=== PATIENT | male | born 1935 | race Caucasian/White ===

== ENCOUNTER 2018-10-03 10:04 | Emergency (ER) | payer OTHER ==
[~2018-10-03] VITALS: Ht 175.3 cm; Wt 92.5 kg
--- OUTSIDE RECORDS SUMMARY | 2018-10-03 10:07 | XMS REPORT | Clinical Summary ---
Author Author [facility] Address Unknown Phone Unavailable Care Team Providers Care Lathe Winder Name Role Phone Asked, No Pcp PCP Unavailable Allergies Comments Active Allergy Reactions Severity Noted Date Codeine 03/24/2018 Medications End Date Status Medication Sig Dispensed Refills Start Date Active lisinopril Take 40 mg by 0 (PRINIVIL,ZESTRIL) 40 mg mouth daily. tablet Active hydroCHLOROthiazide Take 12.5 mg 0 (HYDRODIURIL) 12.5 MG by mouth tablet daily. Active metoprolol succinate XL Take 75 mg by 0 (TOPROL-XL) 25 mg 24 hr mouth daily. tablet Active aspirin (ECOTRIN) 81 MG Take 81 mg by 0 enteric coated tablet mouth daily. Active omega 9-nze-dlo-fish oil Take 1 0 (FISH OIL) 1,000 mg (120 capsule by mg-180 mg) capsule mouth daily. Active amLODIPine (NORVASC) 10 Take 10 mg by 0 mg tablet mouth daily. Active levothyroxine (SYNTHROID, Take 50 mcg 0 LEVOXYL) 50 mcg tablet by mouth every morning. Active omeprazole (PriLOSEC) 20 Take 20 mg by 0 MG capsule mouth daily. 03/29/2018 Discontinued ibuprofen (ADVIL,MOTRIN) Take 200 mg 0 200 MG tablet by mouth every 6 (six) hours as needed for mild pain. 04/28/2018 amIODarone (PACERONE) 200 Take 1 tablet 60 tablet 0 03/29/201 MG tablet (200 mg 8 total) by mouth every 12 (twelve) hours for 30 days. 04/28/2018 apixaban (ELIQUIS) 5 mg Take 1 tablet 60 tablet 0 201 tablet (5 mg total) 8 by mouth 2 (two) times a day for 30 days. Active Problems Problem Noted Date Atrial fibrillation 03/26/2018 Disease of thyroid gland 03/26/2018 Hypertension 03/26/2018 HECTOR (acute kidney injury) 03/26/2018 Pneumonia 03/26/2018 Dehydration 03/24/2018 Encounters Care Team Description Date Type Specialty Emeka Mckenna DO Al-Lahiq, Maha, MD Teqwimuah, Remy, DO Dehydration (Primary Dx); Heat exhaustion due to water depletion, initial encounter; Paroxysmal atrial fibrillation; HECTOR (acute kidney injury) 03/24/2018 Hospital General Internal Medicine - Encounter 03/29/2018 after 10/02/2017 Social History Date Tobacco Use Types Packs/Day Years Used Former Smoker Smokeless Tobacco: Never Used Alcohol Use Drinks/Week oz/Week Comments No Sex Assigned at Date Recorded Not on file Industry Job Start Date Occupation Not on file Not on file Not on file Travel End Travel History Travel Start No recent travel history available. Last Filed Vital Signs Time Taken Vital Sign Reading 03/29/2018 11:22 AM CDT Blood Pressure 135/79 03/29/2018 11:22 AM CDT Pulse 71 03/29/2018 11:22 AM CDT Temperature 37 C (98.6 F) 03/29/2018 11:22 AM CDT Respiratory Rate 16 03/29/2018 11:22 AM CDT Oxygen Saturation 96% - Inhaled Oxygen - Concentration 03/27/2018 4:00 AM CDT Weight 125 kg (275 lb 5.7 oz) 03/24/2018 9:00 PM CDT Height 175.3 cm (5' 9") 03/27/2018 4:00 AM CDT Body Mass Index 40.66 Plan of Treatment Health Maintenance Due Date Last Done Comments SHINGLES VACCINES (1 of 1986 2) PNEUMOCOCCAL 2001 POLYSACCHARIDE VACCINE AGE 65 AND OVER PNEUMOCOCCAL-13 2001 INFLUENZA VACCINE 04/24/2018 Procedures Comments Procedure Name Priority Date/Time Associated Diagnosis ZZESTIMATED GFR Routine 03/29/2018 4:43 AM CDT BASIC METABOLIC PANEL Routine 03/29/2018 4:43 AM CDT CREATINE KINASE, TOTAL Routine 03/29/2018 (CPK) 4:43 AM CDT US RENAL Routine 03/28/2018 8:22 AM CDT ZZESTIMATED GFR Routine 03/28/2018 5:00 AM CDT BASIC METABOLIC PANEL Routine 03/28/2018 5:00 AM CDT HC COMPLETE BLD COUNT Routine 03/28/2018 W/AUTO DIFF 5:00 AM CDT MAGNESIUM LEVEL Routine 03/28/2018 5:00 AM CDT CREATINE KINASE, TOTAL Routine 03/28/2018 (CPK) 5:00 AM CDT ZZESTIMATED GFR Routine 03/27/2018 5:00 AM CDT IONIZED CALCIUM Routine 03/27/2018 5:00 AM CDT BASIC METABOLIC PANEL Routine 03/27/2018 5:00 AM CDT HC COMPLETE BLD COUNT Routine 03/27/2018 W/AUTO DIFF 5:00 AM CDT CREATINE KINASE, TOTAL Routine 03/27/2018 (CPK) 5:00 AM CDT MAGNESIUM LEVEL Routine 03/27/2018 5:00 AM CDT MAGNESIUM LEVEL Routine 03/26/2018 7:44 PM CDT POTASSIUM LEVEL Routine 03/26/2018 7:44 PM CDT HEPATIC FUNCTION PANEL Routine 03/26/2018 7:44 PM CDT IONIZED CALCIUM Routine 03/26/2018 7:44 PM CDT ECG 12-LEAD STAT 03/26/2018 2:[address] CHEST WO CONTRAST Routine 03/26/2018 2:35 PM CDT XR CHEST 1 VW PORTABLE Routine 03/26/2018 6:16 AM CDT CREATINE KINASE, TOTAL Routine 03/26/2018 (CPK) 5:00 AM CDT ZZESTIMATED GFR Routine 03/26/2018 5:00 AM CDT IONIZED CALCIUM Routine 03/26/2018 5:00 AM CDT PHOSPHORUS LEVEL Routine 03/26/2018 5:00 AM CDT LACTIC ACID LEVEL Routine 03/26/2018 5:00 AM CDT MAGNESIUM LEVEL Routine 03/26/2018 5:00 AM CDT COMPREHENSIVE METABOLIC Routine 03/26/2018 PANEL 5:00 AM CDT HC COMPLETE BLD COUNT Routine 03/26/2018 W/AUTO DIFF 5:00 AM CDT URINALYSIS SCREEN AND Routine 03/25/2018 MICROSCOPY, WITH REFLEX 7:45 PM CDT TO CULTURE GRAM STAIN Routine 03/25/2018 7:45 PM CDT URINE CULTURE Routine 03/25/2018 7:45 PM CDT ECG 12-LEAD Routine 03/25/2018 7:15 PM CDT LACTIC ACID LEVEL Routine 03/25/2018 6:45 PM CDT TROPONIN Routine 03/25/2018 6:45 PM CDT ECHOCARDIOGRAM 2D Routine 03/25/2018 COMPLETE W MMODE SPECTRAL 3:00 PM CDT COLOR DOPPLER ([id number]) ECG 12-LEAD STAT 03/25/2018 1:32 PM CDT XR CHEST 1 VW PORTABLE STAT 03/25/2018 1:25 PM CDT BLOOD CULTURE, AEROBIC & Routine 03/25/2018 ANAEROBIC 1:20 PM CDT BLOOD CULTURE, AEROBIC & Routine 03/25/2018 ANAEROBIC 1:10 PM CDT TROPONIN Routine 03/25/2018 1:00 PM CDT B NATRIURETIC PEPTIDE STAT 03/25/2018 1:00 PM CDT LACTIC ACID LEVEL STAT 03/25/2018 1:00 PM CDT ZZESTIMATED GFR Routine 03/25/2018 7:14 AM CDT HC COMPLETE BLD COUNT STAT 03/25/2018 W/AUTO DIFF 7:14 AM CDT BASIC METABOLIC PANEL Routine 03/25/2018 7:14 AM CDT LACTIC ACID LEVEL, SEPSIS Timed 03/24/2018 - NOW AND REPEAT 2X EVERY 10:15 PM CDT 3 HOURS NM LUNG VENTILATION STAT 03/24/2018 PERFUSION 7:34 PM CDT TROPONIN Timed 03/24/2018 6:34 PM CDT LACTIC ACID LEVEL, SEPSIS Timed 03/24/2018 - NOW AND REPEAT 2X EVERY 6:34 PM CDT 3 HOURS XR CHEST 1 VW PORTABLE STAT 03/24/2018 5:10 PM CDT ZZESTIMATED GFR STAT 03/24/2018 3:44 PM CDT TROPONIN STAT 03/24/2018 3:44 PM CDT CREATINE KINASE, TOTAL STAT 03/24/2018 (CPK) 3:44 PM CDT LACTIC ACID LEVEL, SEPSIS STAT 03/24/2018 - NOW AND REPEAT 2X EVERY 3:44 PM CDT 3 HOURS BASIC METABOLIC PANEL STAT 03/24/2018 3:44 PM CDT HC COMPLETE BLD COUNT STAT 03/24/2018 W/AUTO DIFF 3:44 PM CDT ECG ED PRELIMINARY Routine 03/24/2018 INTERPRETATION 3:37 PM CDT ECG 12-LEAD STAT 03/24/2018 3:31 PM CDT after 10/02/2017 Results * Estimated GFR (03/29/2018 4:43 AM CDT) Only the most recent of 6 results within the time period is included. GFR Non Af Amer 45 (A) mL/min/1.73 m2 [facility] DEPARTMENT OF PATHOLOGY AND GENOMIC MEDICINE GFR Af Amer 54 (A) mL/min/1.73 m2 [facility] DEPARTMENT OF Comment: PATHOLOGY AND Chronic kidney disease: <60 GENOMIC MEDICINE mL/min/1.73m2 Kidney failure: <15 mL/min/1.73m2 The estimated GFR is calculated from the IDMS-traceable Modification of Diet in Renal Disease Equation. The accuracy of the calculation is poor when the creatinine is normal. Calculated values >90 mL/min/1.73m2 are not reported. This equation has not been validated in children (<18 years), women, the elderly (>70 years), or ethnic groups other than Caucasians and Americans. Specimen Plasma specimen Performing Organization Address [facility] Phone Number [address] [place] [address] PATHOLOGY [facility] * Creatine kinase, total (CPK) (03/29/2018 4:43 AM CDT) Only the most recent of 5 results within the time period is included. Creatine kinase 33 (L) 39 - 308 U/L [facility] PATHOLOGY [facility] cFares [facility] Specimen Plasma specimen Performing Organization Address City/[facility] Phone Number [address] [place] [address] PATHOLOGY [facility] * Basic metabolic panel (03/29/2018 4:43 AM CDT) Only the most recent of 5 results within the time period is included. Sodium 141 135 - 148 mEq/L [facility] DEPARTMENT OF PATHOLOGY AND GENOMIC MEDICINE Potassium 3.9 3.5 - 5.0 mEq/L [facility] DEPARTMENT OF PATHOLOGY AND GENOMIC MEDICINE Chloride 100 98 - 112 mEq/L [facility] DEPARTMENT OF PATHOLOGY AND GENOMIC MEDICINE CO2 27 24 - 31 mEq/L [facility] DEPARTMENT OF PATHOLOGY AND GENOMIC MEDICINE Anion gap 14@ANIO 7 - 15 mEq/L [facility] DEPARTMENT OF PATHOLOGY AND GENOMIC MEDICINE BUN 23 8 - 23 mg/dL [facility] DEPARTMENT OF PATHOLOGY AND GENOMIC MEDICINE Creatinine 1.5 (H) 0.7 - 1.2 mg/dL [facility] DEPARTMENT OF PATHOLOGY AND GENOMIC MEDICINE Glucose 111 (H) 65 - 99 mg/dL [facility] DEPARTMENT OF PATHOLOGY AND GENOMIC MEDICINE Calcium 8.8 8.8 - 10.2 mg/dL [facility] DEPARTMENT OF PATHOLOGY AND GENOMIC MEDICINE Specimen Plasma specimen Performing Organization Address [facility]/Zipcode Phone Number [facility] [address] [place] [address] PATHOLOGY AND GENOMIC MEDICINE * US Renal (03/28/2018 8:22 AM CDT) Narrative Performed At EXAMINATION:US RENAL [facility] CLINICAL HISTORY:HECTOR COMPARISON:None. IMPRESSION: 1.There is no hydronephrosis. 2.Renal cortical echogenicity is within normal limits. 3.Right kidney measures 10.6 x 5.9 x 5.9 cm. 4.Left kidney measures 10.7 x 6.9 x 8 cm with couple of cysts measuring 6.4 x 3.2 x 4.7 cm in the inferior pole and 3.1 cm in the mid/superior pole. 5.Bladder is unremarkable. [facility]-[id number] Procedure Note Interface, Radiology Results Incoming - 03/28/2018 8:30 AM CDT EXAMINATION: US RENAL CLINICAL HISTORY: HECTOR COMPARISON: None. IMPRESSION: 1. There is no hydronephrosis. 2. Renal cortical echogenicity is within normal limits. 3. Right kidney measures 10.6 x 5.9 x 5.9 cm. 4. Left kidney measures 10.7 x 6.9 x 8 cm with couple of cysts measuring 6.4 x 3.2 x 4.7 cm in the inferior pole and 3.1 cm in the mid/superior pole. 5. Bladder is unremarkable. [facility]-[id number] Performing Organization Address City/[facility]/Zipcode Phone Number [facility] [address] [place] [address] * CBC with platelet and differential (03/28/2018 5:00 AM CDT) Only the most recent of 5 results within the time period is included. WBC 5.93 4.50 - 11.00 k/uL [facility] DEPARTMENT OF PATHOLOGY AND GENOMIC MEDICINE RBC 4.30 (L) 4.40 - 6.00 m/uL [facility] DEPARTMENT OF PATHOLOGY AND GENOMIC MEDICINE HGB 13.3 (L) 14.0 - 18.0 g/dL [facility] DEPARTMENT OF PATHOLOGY AND GENOMIC MEDICINE HCT 39.2 (L) 41.0 - 51.0 % [facility] DEPARTMENT OF PATHOLOGY AND GENOMIC MEDICINE MCV 91.2 82.0 - 100.0 fL [facility] DEPARTMENT OF PATHOLOGY AND GENOMIC MEDICINE MCH 30.9 27.0 - 34.0 pg [facility] DEPARTMENT OF PATHOLOGY AND GENOMIC MEDICINE MCHC 33.9 31.0 - 37.0 g/dL [facility] DEPARTMENT OF PATHOLOGY AND GENOMIC MEDICINE RDW - SD 44.9 37.0 - 55.0 fL [facility] DEPARTMENT OF PATHOLOGY AND GENOMIC MEDICINE MPV 11.1 8.8 - 13.2 fL [facility] DEPARTMENT OF PATHOLOGY AND GENOMIC MEDICINE Platelet count 168 150 - 400 k/uL [facility] DEPARTMENT OF PATHOLOGY AND GENOMIC MEDICINE Nucleated RBC 0.00 /100 WBC [facility] DEPARTMENT OF PATHOLOGY AND GENOMIC MEDICINE Neutrophils 68.7 39.0 - 69.0 % [facility] DEPARTMENT OF PATHOLOGY AND GENOMIC MEDICINE Lymphocytes 19.7 (L) 25.0 - 45.0 % [facility] DEPARTMENT OF PATHOLOGY AND GENOMIC MEDICINE Monocytes 7.9 0.0 - 10.0 % [facility] DEPARTMENT OF PATHOLOGY AND GENOMIC MEDICINE Eosinophils 1.7 0.0 - 5.0 % [facility] DEPARTMENT PATHOLOGY AND GENOMIC MEDICINE Basophils 0.5 0.0 - 1.0 % [facility] OF PATHOLOGY AND GENOMIC MEDICINE Specimen Blood Performing Organization Address City[facility] Phone Number [address] [place] [address] PATHOLOGY [facility] * Magnesium level (03/28/2018 5:00 AM CDT) Only the most recent of 4 results within the time period is included. Magnesium 2.0 1.6 - 2.4 mg/dL [facility] OF PATHOLOGY AND GENOMIC MEDICINE Specimen Plasma specimen Performing Organization Address City[facility] Phone Number [address] [place] [address] PATHOLOGY [facility] GENOMIC MEDICINE * Ionized calcium (03/27/2018 5:00 AM CDT) Only the most recent of 3 results within the time period is included. pH 7.47 [facility] DEPARTMENT OF PATHOLOGY AND GENOMIC MEDICINE Ionized calcium 1.12 1.11 - 1.32 mmol/L [facility] DEPARTMENT OF PATHOLOGY AND GENOMIC MEDICINE Specimen Plasma specimen Performing Organization Address [facility] Phone Number [place] [address] [place] [phone] PATHOLOGY AND GENOMIC MEDICINE * Potassium level (03/26/2018 7:44 PM CDT) Potassium 3.3 (L) 3.5 - 5.0 mEq/L [facility] DEPARTMENT OF PATHOLOGY AND GENOMIC MEDICINE Specimen Plasma specimen Performing Organization Address City/[facility] Phone Number [place] [address] [place] [phone] PATHOLOGY AND GENOMIC MEDICINE * Hepatic function panel (03/26/2018 7:44 PM CDT) Albumin 2.5 (L) 3.5 - 5.0 g/dL [facility] DEPARTMENT OF PATHOLOGY AND GENOMIC MEDICINE Total bilirubin 0.4 0.0 - 1.2 mg/dL [facility] DEPARTMENT OF PATHOLOGY AND GENOMIC MEDICINE Bilirubin direct 0.1 0.0 - 0.3 mg/dL [facility] DEPARTMENT OF PATHOLOGY AND GENOMIC MEDICINE Alkaline phosphatase 49 40 - 129 U/L [facility] DEPARTMENT OF PATHOLOGY AND GENOMIC MEDICINE Protein 4.9 (L) 6.3 - 8.3 g/dL [facility] DEPARTMENT OF Comment: PATHOLOGY AND GENOMIC MEDICINE 4.6-7.0 g/dL 1 week 4.4-7.6 g/dL 7 months-1year 5.1-7.3 g/dL 1-2 years5.6-7 .5 g/dL >3 years6.0-8 .0 g/dL 18-150 6.3-8.3 g/dL ALT 34 5 - 50 U/L [facility] DEPARTMENT OF PATHOLOGY AND GENOMIC MEDICINE AST 34 10 - 50 U/L [facility] DEPARTMENT OF PATHOLOGY AND GENOMIC MEDICINE Specimen Plasma specimen Performing Organization Address [facility] Phone Number [place] [address] [place] [phone] PATHOLOGY AND GENOMIC MEDICINE * ECG 12 lead (03/26/2018 2:58 PM CDT) Only the most recent of 4 results within the time period is included. Ventricular rate 102 [facility] Atrial rate 326 [facility] QRSD interval 96 [facility] QT interval 346 [facility] QTC interval 450 [facility] QRS axis 1 -62 [facility] T wave axis 69 [facility] M[facility] EKG impression Atrial fibrillation with rapid [facility] M[facility] ventricular response-Left axis deviation-Inferior infarct (cited on or before 25-MAR-2018)-Cannot rule out Anterior infarct , age undetermined-Abnormal ECG-In automated comparison with ECG of 25-MAR-2018 19:15,-No significant change was found- Performing Organization Address City/State/Zipcode Phone Number [facility] MUSE [address] [place] [address] * CT Chest Wo Contrast (03/26/2018 2:35 PM CDT) Narrative Performed At EXAMINATION: CT CHEST WO CONTRAST [facility] CLINICAL HISTORY: 82 years Male Pneumonia TECHNIQUE:Multiple axial images of the chest were obtained without intravenous contrast. The lack of intravenous contrast reduces the sensitivity of detecting solid organ disease and evaluating vasculature. Sagittal and coronal computerized reformatted images were also obtained. CT imaging was performed with iterative reconstruction techniques and/or automated exposure control to reduce radiation dose. COMPARISON: None. FINDINGS: The mediastinum appears unremarkable. There is coronary artery calcification. The hilar areas appear within normal limits. Heart size is within normal limits. Views of the upper abdomen which were obtained demonstrate no focal findings. The liver is probably mildly fatty infiltrated. The lung bases demonstrate areas of mild basilar atelectasis pneumonia is not excluded although atelectasis is favored. This is associated with a small amount of pleural fluid on both sides. Elsewhere the lungs appear clear with no focal lung consolidation nodule or mass identified.. The regional skeleton appears intact with mild wedging of several mid thoracic vertebra and diffuse osteopenia of the T-spine IMPRESSION: 1. Mild bibasilar atelectasis and small bilateral pleural effusions. Pneumonia is not totally excluded although the findings favor atelectasis. 2. Probable mild diffuse fatty infiltration of the liver. [id number] Procedure Note Interface, Radiology Results - 03/26/2018 3:36 PM CDT EXAMINATION: CT CHEST WO CONTRAST CLINICAL HISTORY: 82 years Male Pneumonia TECHNIQUE: Multiple axial images of the chest were obtained without intravenous contrast. The lack of intravenous contrast reduces the sensitivity of detecting solid organ disease and evaluating vasculature. Sagittal and coronal computerized reformatted images were also obtained. CT imaging was performed with iterative reconstruction techniques and/or automated exposure control to reduce radiation dose. COMPARISON: None. FINDINGS: The mediastinum appears unremarkable. There is coronary artery calcification. The hilar areas appear within normal limits. Heart size is within normal limits. Views of the upper abdomen which were obtained demonstrate no focal findings. The liver is probably mildly fatty infiltrated. The lung bases demonstrate areas of mild basilar atelectasis pneumonia is not excluded although atelectasis is favored. This is associated with a small amount of pleural fluid on both sides. Elsewhere the lungs appear clear with no focal lung consolidation nodule or mass identified.. The regional skeleton appears intact with mild wedging of several mid thoracic vertebra and diffuse osteopenia of the T-spine IMPRESSION: 1. Mild bibasilar atelectasis and small bilateral pleural effusions. Pneumonia is not totally excluded although the findings favor atelectasis. 2. Probable mild diffuse fatty infiltration of the liver. [facility]-[id number] Performing Organization Address [facility] Phone Number [phone] [place] [address] * XR Chest 1 Vw Portable (03/26/2018 6:16 AM CDT) Only the most recent of 3 results within the time period is included. Narrative Performed At EXAMINATION: XR CHEST 1 VW PORTABLE [facility] INDICATION: SOB COMPARISON: Most recent prior IMPRESSION: Stable appearance of the heart and mediastinum. Focal retrocardiac left basilar opacity is slightly increased since prior and may represent atelectasis. Radiographic follow-up is recommended. Discoid atelectasis right lower lobe. Small left pleural effusion. No visible pneumothorax. [facility]-[id number] Procedure Note Interface, Radiology Results Incoming - 03/26/2018 6:57 AM CDT EXAMINATION: XR CHEST 1 VW PORTABLE INDICATION: SOB COMPARISON: Most recent prior IMPRESSION: Stable appearance of the heart and mediastinum. Focal retrocardiac left basilar opacity is slightly increased since prior and may represent atelectasis. Radiographic follow-up is recommended. Discoid atelectasis right lower lobe. Small left pleural effusion. No visible pneumothorax. [facility]-[id number] Performing Organization Address [facility] Phone Number [phone] [place] [address] * Phosphorus level (03/26/2018 5:00 AM CDT) Phosphorus 3.6 2.4 - 4.5 mg/dL [facility] DEPARTMENT OF PATHOLOGY AND GENOMIC MEDICINE Specimen Plasma specimen Performing Organization Address City/[facility]/Zipcode Phone Number [place] [place] [address] [place] [address] PATHOLOGY AND GENOMIC MEDICINE * Lactic acid level (03/26/2018 5:00 AM CDT) Only the most recent of 3 results within the time period is included. Lactic acid 1.0 0.5 - 2.2 mmol/L [facility] DEPARTMENT OF PATHOLOGY AND GENOMIC MEDICINE Specimen Plasma specimen Performing Organization Address City/[facility] Phone Number [facility] [place] [address] [place] [address] PATHOLOGY [facility] * Comprehensive metabolic panel (03/26/2018 5:00 AM CDT) Sodium 144 135 - 148 mEq/L [facility] DEPARTMENT OF PATHOLOGY AND GENOMIC MEDICINE Potassium 3.5 3.5 - 5.0 mEq/L [facility] DEPARTMENT OF PATHOLOGY AND GENOMIC MEDICINE Chloride 110 98 - 112 mEq/L [facility] DEPARTMENT OF PATHOLOGY AND GENOMIC MEDICINE CO2 23 (L) 24 - 31 mEq/L [facility] DEPARTMENT OF PATHOLOGY AND GENOMIC MEDICINE Anion gap 11@ANIO 7 - 15 mEq/L [facility] DEPARTMENT OF PATHOLOGY AND GENOMIC MEDICINE BUN 42 (H) 8 - 23 mg/dL [facility] DEPARTMENT OF PATHOLOGY AND GENOMIC MEDICINE Creatinine 2.8 (H) 0.7 - 1.2 mg/dL [facility] DEPARTMENT OF PATHOLOGY AND GENOMIC MEDICINE Glucose 102 (H) 65 - 99 mg/dL [facility] DEPARTMENT OF PATHOLOGY AND GENOMIC MEDICINE Calcium 7.4 (L) 8.8 - 10.2 mg/dL [facility] DEPARTMENT OF PATHOLOGY AND GENOMIC MEDICINE Protein 5.0 (L) 6.3 - 8.3 g/dL [facility] DEPARTMENT OF Comment: PATHOLOGY AND [place] GENOMIC MEDICINE 4.6-7.0 g/dL 1 week 4.4-7.6 g/dL 7 months-1year 5.1-7.3 g/dL 1-2 years5.6-7 .5 g/dL >3 years6.0-8 .0 g/dL 18-150 6.3-8.3 g/dL Albumin 2.7 (L) 3.5 - 5.0 g/dL [facility] DEPARTMENT OF PATHOLOGY AND GENOMIC MEDICINE A/G ratio 1.2 0.7 - 3.8 [facility] DEPARTMENT OF PATHOLOGY AND GENOMIC MEDICINE Alkaline phosphatase 44 40 - 129 U/L [facility] DEPARTMENT OF PATHOLOGY AND GENOMIC MEDICINE AST 44 10 - 50 U/L [facility] DEPARTMENT OF PATHOLOGY AND GENOMIC MEDICINE ALT 40 5 - 50 U/L [facility] DEPARTMENT OF PATHOLOGY AND GENOMIC MEDICINE Total bilirubin 0.6 0.0 - 1.2 mg/dL [facility] DEPARTMENT OF PATHOLOGY AND GENOMIC MEDICINE Specimen Plasma specimen Performing Organization Address City/[facility] Phone Number [address] [place] [address] PATHOLOGY AND GENOMIC MEDICINE * Urinalysis screen and microscopy, with reflex to culture (03/25/2018 7:45 PM CDT) Specimen site Clean catch [facility] DEPARTMENT OF PATHOLOGY AND GENOMIC MEDICINE Color, UA Kyara [facility] DEPARTMENT OF PATHOLOGY AND GENOMIC MEDICINE Appearance, UA Slightly-Cloudy [facility] DEPARTMENT OF PATHOLOGY AND GENOMIC MEDICINE Specific gravity, UA 1.013 1.001 - 1.035 [facility] DEPARTMENT OF PATHOLOGY AND GENOMIC MEDICINE pH, UA 5.0 5.0 - 8.5 [facility] DEPARTMENT OF PATHOLOGY AND GENOMIC MEDICINE Protein, UA Negative Negative [facility] DEPARTMENT OF PATHOLOGY AND GENOMIC MEDICINE Glucose, UA Negative Negative [facility] DEPARTMENT OF PATHOLOGY AND GENOMIC MEDICINE Ketones, UA Negative Negative [facility] DEPARTMENT OF PATHOLOGY AND GENOMIC MEDICINE Bilirubin, UA Negative Negative [facility] DEPARTMENT OF PATHOLOGY AND GENOMIC MEDICINE Blood, UA Small (A) Negative [facility] DEPARTMENT OF PATHOLOGY AND GENOMIC MEDICINE Nitrite, UA Negative Negative [facility] DEPARTMENT OF PATHOLOGY AND GENOMIC MEDICINE Urobilinogen, UA 2.0 (A) <2.0 [facility] DEPARTMENT OF PATHOLOGY AND GENOMIC MEDICINE Leukocyte esterase, UA Negative Negative [facility] DEPARTMENT OF PATHOLOGY AND GENOMIC MEDICINE Epithelial cells, UA Few /HPF [facility] DEPARTMENT OF PATHOLOGY AND GENOMIC MEDICINE WBC, UA 6-10 (H) 0 - 1 /HPF [facility] DEPARTMENT OF PATHOLOGY AND GENOMIC MEDICINE RBC, UA 0-5 0 - 5 /HPF [facility] DEPARTMENT OF PATHOLOGY AND GENOMIC MEDICINE Bacteria, UA Trace None seen [facility] DEPARTMENT OF PATHOLOGY AND GENOMIC MEDICINE Yeast, UA None seen [facility] DEPARTMENT OF PATHOLOGY AND GENOMIC MEDICINE Yeast with pseudohyphae, None seen [facility] DEPARTMENT [facility] PATHOLOGY AND GENOMIC MEDICINE Specimen Urine Performing Organization Address City/[facility]/Zipcode Phone Number [facility] [place] [address] [place] [address] PATHOLOGY AND GENOMIC MEDICINE * Gram stain (03/25/2018 7:45 PM CDT) Gram stain result Rare WBC's [facility] DEPARTMENT OF Rare Gram positive cocci in PATHOLOGY AND pairs GENOMIC MEDICINE Comment: Specimen Information Specimen Source: Urine Specimen Site: Clean catch Specimen Urine Performing Organization Address City/[facility] Phone Number [facility] DEPARTMENT OF [address] [place] [address] PATHOLOGY AND GENOMIC MEDICINE * Urine culture (03/25/2018 7:45 PM CDT) Urine culture isolate Mixed Gram positive tiffany [facility] DEPARTMENT OF <10-1 cfu/ml PATHOLOGY AND (A) GENOMIC MEDICINE Comment: Specimen Information Specimen Source: Urine Specimen Site: Clean catch Specimen Urine Performing Organization Address [facility] Cent[facility]ode Phone Number [facility] DEPARTMENT OF [address] [place] [address] PATHOLOGY AND GENOMIC MEDICINE * Troponin (03/25/2018 6:45 PM CDT) Only the most recent of 4 results within the time period is included. Troponin <0.300 0.000 - 0.300 ng/mL [facility] DEPARTMENT OF Comment: PATHOLOGY AND 0.30 - 1.49 GENOMIC MEDICINE ng/mlMay indicate increased risk of acute coronary syndrome. >=1.5 ng/ml Consistent with acute myocardial infarction. The diagnostic value of a single normal or non-diagnostic result is questionable.Serial samples at 2-6 hour intervals are required to rule out acute myocardial injury. Specimen Plasma specimen Performing Organization Address [facility] Phone Number [facility] DEPARTMENT OF [facility] [place] [address] PATHOLOGY AND GENOMIC MEDICINE * Echocardiogram complete w contrast and 3D if needed (03/25/2018 3:00 PM CDT) Velocity Ratio (V1/V2) 0.78 m/s [facility] IVS,d 1.10 cm [facility] Ao root annulus 3.47 cm [facility] EF 59.35 % [facility] LVPWD,d 0.88 cm [facility] AoV Mean PG 5.92 mmHg [facility] AV LVOT peak gradient 6.01 mmHg [facility] MV valve area p 1/2 4.62 cm2 [facility] method E/A ratio 0.71 [facility] E wave decelartion time 206.34 msec [facility] LVOT Diam,S 2.15 cm [facility] LVOT area 3.63 cm2 [facility] LVOT Vmax 1.23 m/s [facility] LVOT VTI 0.25 m [facility] AoV Peak PG 10.02 mmHg [facility] MV Peak E Vijay 0.53 m/s [facility] MV stenosis pressure 1/2 47.61 ms [facility] time MV Peak A Vijay 0.75 m/s [facility] LV Vol,s A2C 24.55 mL [facility] LV Vol,d A2C 72.33 mL [facility] AoV Area, Vmax 2.82 cm2 [facility] AoV Area, VTI 3.25 cm2 [facility] AoV Vmax 1.58 m/s [facility] LA Area d A4C 18 cm2 [facility] LV,d 3.71 cm [facility] LV,s 2.56 cm [facility] LV Vol,d A4C 71.10 ml [facility] LV Vol,s A4C 27.52 ml [facility] RVSP (TR) 28.84 mmHg [facility] TR Vpeak 2.44 mm/s [facility] MV E A ratio 0.71 mmHg [facility] RA pressure 5.00 mmHg [facility] TR pk grad 21.42 mmHg [facility] RVSP 28.84 mmHg [facility] AR Press Half Time 539.57 ms [facility] LV SYS VOL 23.75 ml [facility] LV NORTON VOL 58.42 ml [facility] LA diam s 3.90 cm [facility] LA Vol MOD A4C 18.00 ml [facility] LV SV Teich 2D 34.68 ml [facility] LVOT SI 43.02 ml/m2 [facility] AoV Cusp sep 1.39 [facility] Aortic Root 3.50 cm [facility] AoV Vmn 1.14 [facility] AR slope 1.68 [facility] Ar Vmax 3.13 [facility] IVS s 2D 1.23 [facility] LA Ao Ratio Mmode 1.14 [facility] AR maxPG 39.14 [facility] E prime lat 0.06 [facility] E carol sept 0.04 [facility] PV acc T slope 5.90 [facility] PV AT 100.35 msec [facility] AoV VTI 0.28 m [facility] LV EF,A2C 66.06 % [facility] LV EF,A4C 61.29 % [facility] LV EF,BP 63.69 % [facility] [place],d A2C 8.63 cm [facility] [place],d A4C 7.19 cm [facility] [place],s A2C 6.90 cm [facility] [place],s A4C 5.59 cm [facility] LV SV,A2C 47.79 % [facility] LV SV,A4C 43.58 % [facility] LV Vol,d BP 78.46 ml [facility] LV Vol,s BP 28.49 nl [facility] LVOT Vmn 0.83 [facility] Pt Size 175.26 [facility] Pt Wt 96.16 [facility] LVOT mean grad 3.21 mmHg [facility] AR DT 1,860.57 msec [facility] AR pk grad 39.14 mmHg [facility] LVPW s PLAX 1.48 cm [facility] MV Decel slope 2.57 m/s2 [facility] Narrative Performed At [facility] The left ventricle chamber size is normal. Left Ventricular ejection fraction is 50 - 55%. Right ventricular size is mildly enlarged. Global right ventricle systolic function is mildly reduced. There is pericardial effusion. Spectral Doppler shows impaired relaxation pattern of left ventricular diastolic filling. Technically difficult study Performing Organization Address City/[facility]/Zipcode Phone Number [facility] [address] [place] [address] * Blood culture, aerobic & anaerobic (03/25/2018 1:20 PM CDT) Only the most recent of 2 results within the time period is included. Blood culture isolate No growth after 5 days of [facility] DEPARTMENT OF incubation. PATHOLOGY AND Comment: GENOMIC MEDICINE Specimen Information Specimen Source: Blood Specimen Site: Peripheral Hand Left Specimen Blood Performing Organization Address City/State/Zipcode Phone Number [facility] DEPARTMENT OF [address] [place] [address] PATHOLOGY AND GENOMIC MEDICINE * B natriuretic peptide (03/25/2018 1:00 PM CDT) BNP 483 (H) 0 - 100 pg/mL [facility] DEPARTMENT OF PATHOLOGY AND GENOMIC MEDICINE Performing Organization Address City/[facility]/Zipcode Phone Number [facility] DEPARTMENT [address] [place] [address] PATHOLOGY AND GENOMIC MEDICINE * Lactic acid level, SEPSIS - Now and repeat 2x every 3 hours (03/24/2018 10:15 PM CDT) Only the most recent of 3 results within the time period is included. Lactic acid 2.4 (H) 0.5 - 2.2 mmol/L [facility] DEPARTMENT OF PATHOLOGY AND GENOMIC MEDICINE Specimen Plasma specimen Performing Organization Address City/[facility] Cent[facility]ode Phone Number [facility] [place] [address] [place] [address] PATHOLOGY AND GENOMIC MEDICINE * NM Lung Ventilation Perfusion (03/24/2018 7:34 PM CDT) Narrative Performed At CLINICAL HISTORY: dyspneatachycardiahas ckd [facility] TECHNIQUE: The patient breathed 15-20 mCi of xenon-133 gas through a closed ventilation system while dynamic imaging of the lungs was performed in the posterior and anterior projections. The patient was then injected with 5 mCi of [id number] intravenously, followed by imaging of the lungs in anterior, posterior, and oblique projections. FINDINGS: Heterogeneous ventilation and perfusion. IMPRESSION: Very Low Probability for pulmonary embolism. [facility], 1928–1983 Procedure Note Hm Interface, Radiology Results Incoming - 03/24/2018 7:44 PM CDT CLINICAL HISTORY: dyspnea tachycardia has ckd TECHNIQUE: The patient breathed 15-20 mCi of xenon-133 gas through a closed ventilation system while dynamic imaging of the lungs was performed in the posterior and anterior projections. The patient was then injected with 5 mCi of [id number] intravenously, followed by imaging of the lungs in anterior, posterior, and oblique projections. FINDINGS: Heterogeneous ventilation and perfusion. IMPRESSION: Very Low Probability for pulmonary embolism. [facility] Performing Organization Address City/[facility] Cent[facility]ode Phone Number [facility] [address] [place] [address] * ECG ED Preliminary Interpretation - NOT AN ORDER (03/24/2018 3:37 PM CDT) Narrative Performed At Emeka Mckenna DO 03/24/20187:41 PM ECG ED Preliminary Interpretation - Not an Order Performed by: EMEKA MCKENNA Authorized by: EMEKA MCKENNA ECG reviewed by ED Physician in the absence of a technical developer: yes Interpretation: Interpretation: normal Rate: ECG rate:89 ECG rate assessment: normal Rhythm: Rhythm: sinus rhythm Ectopy: Ectopy: none QRS: QRS axis:Normal Conduction: Conduction: normal ST segments: ST segments:Normal T waves: T waves: normal after 10/02/2017 Insurance Payer Benefit Subscriber ID Type Phone Address Plan / Group [employer] xxxxxxxxx O [facility] Advance Directives Patient has advance care planning documents on file. For more information, [facility] contact: Luis Mendoza [address] [place] [address]
[2018-10-03] MEDS ORDERED: LIDOCAINE HCL 1% LOCAL INJ 20 ML VIAL ONE (10:27)
[2018-10-03] MEDS ORDERED: BACITRACIN ZINC 0.9GM TP ONE ×2 (10:35→11:00)
[2018-10-03 11:19] VITALS: BP 124/53
--- NOTE | 2018-10-03 11:34 | Diagnostic Imaging Report ---
Exam: Left wrist 3 views History: Laceration to base of thumb Comparison: None. Findings: No acute, displaced fracture or dislocation. Appropriate alignment between the distal radius, lunate, and capitate is maintained on the lateral chest radiograph. Small soft tissue defect adjacent to the first carpometacarpal joint. No associated radiopaque foreign body. Subcentimeter metallic foreign body in the soft tissues of the volar hand, the approximate level of the head of the second metacarpal. Impression: No acute osseous abnormality. Small soft tissue defect compatible with laceration adjacent to the first carpometacarpal joint without regional radiopaque foreign body. Metallic foreign body within the palmar soft tissues as above. Signed by: Dr. Jabari Saleem M.D. on 10/03/2018 11:31 AM
--- NOTE | 2018-10-03 13:59 | Consultation ---
DATE OF CONSULTATION: October 03, 2018 ER CONSULTATION/PROCEDURE NOTE CHIEF COMPLAINT: Laceration, left wrist secondary to plate glass. HISTORY OF PRESENT ILLNESS: The patient is an 83-year-old ambidextrous male who states that he was attempting to remove a plate glass window when the window became loose and struck him on the volar radial aspect of the left wrist. He noted profuse amount of bleeding. He placed a pressure bandage on the area and drove himself to the emergency room. The emergency room staff removed the bandage, and felt that there was arterial pulsatile bleeding, and is requesting urgent consultation with hand surgery. PHYSICAL EXAMINATION EXTREMITIES: There was a pressure dressing in place on the patient's left wrist. The pressure dressing was removed, and there was a linear laceration approximately 4 cm long on the volar radial aspect of the left wrist. Pressure was then reapplied gently to eliminate the bleeding. Examination of the radial pulse revealed it to be 2+ without any deficits. There is full flexion of all the fingers, and the sensation is grossly intact. IMPRESSION: This is the laceration of the princeps pollicis branch of the radial artery and not the main radial artery. PROCEDURE: The patient had tourniquets placed on the forearm to control the bleeding. The wound was prepped with Betadine solution. At this point, the wound was explored. The area where the pulsatile bleeding was noted was secured with 4-0 Prolene in an interrupted figure-of-8 fashion. After completing this maneuver, the bleeding was noted to be cessated. The remainder of the wound was stitched with 4-0 Prolene in an interrupted fashion. Polysporin ointment, Xeroform gauze and a sterile dressing were then applied. The tourniquets were removed and the hand pinked up nicely. The patient was given postop instructions to keep the dressing clean and dry until seen in the office in several days. He will be given a prescription for analgesics and antibiotics. Job#: [id number] DC
== END 2018-10-03 12:20 | disposition home or self-care (01) ==
LOC: ER 10:04
DX: S61.512A Laceration without foreign body of left wrist, initial encounter (principal); W25.XXXA Contact with sharp glass, initial encounter; I10 Essential (primary) hypertension; E11.9 Type 2 diabetes mellitus without complications; I48.91 Unspecified atrial fibrillation
CPT/HCPCS: 13121; 73110; 99284; J2001